=== PATIENT | female | born 1935 | race Caucasian/White ===

== ENCOUNTER 2019-12-30 00:45 | Inpatient (IN) | payer OTHER ==
[~2019-12-30] VITALS: Ht 165.1 cm; Wt 102.7 kg
[~2019-12-30 00:45] MED LIST: ATEN-60; ATOR10TA52 PO; HYDRPOW88 PO; LEV50T PO; LOS50T PO; METF-370 PO; NIFE1TAB31 PO; OMEP20CA74 OR
[2019-12-30 01:33] LABS: Basophils # (auto) 0.1 10 ^3/uL (0-0.2); Eosinophils # (auto) 0.1 10 ^3/uL (0-0.8); Monocytes # (auto) 0.6 10 ^3/uL (0-1.3)
[2019-12-30 01:34] LABS: Basophils % (auto) 0.4 % (0.0-2.0); Eosinophils % (auto) 0.8 % (0.0-7.0); Hematocrit 44.6 % (36.0-46.0); Hemoglobin 14.8 g/dL (12.2-16.2); Lymphocytes # (auto) 1.5 10 ^3/uL (0.4-5.4); Lymphocytes % (auto) 12.2 % (10.0-50.0); Mean Corpuscular Hemoglobin 26.6 pg (28.0-32.0); Mean Corpuscular Hgb Conc. 33.2 g/dL (32.0-36.0); Monocytes % (auto) 4.4 % (0.0-12.0); Neutrophils # (auto) 10.3 10 ^3/uL (1.6-8.6); Neutrophils % (auto) 82.2 % (37.0-80.0); Nucleated Red Blood Cells % 0.5 %; Platelet Count (auto) 383 10^3/uL (140-450); Red Blood Cells 5.57 10^6/uL (4.0-5.20); Red Cell Distribution Width 14.6 % (11.8-14.3); White Blood Cell 12.6 10^3/uL (4.4-10.8)
[2019-12-30 01:49] LABS: Alanine Aminotransferase 33 U/L (13-56); Albumin 3.5 g/dL (3.4-5.0); Anion Gap 12 (5-15); Aspartate Aminotransferase 21 U/L (15-37); BUN/Creatinine Ratio 16.1; Blood Urea Nitrogen 14 mg/dL (7-18); Calcium 8.3 mg/dL (8.5-10.1); Carbon Dioxide 25 mmol/L (21-32); Chloride 83 mmol/L (98-107); GFR African American 80 mL/min; GFR Non-African American 66 mL/min; Glucose 182 mg/dL (74-106); Potassium 3.2 mmol/L (3.5-5.1); Sodium 120 mmol/L (136-145)
[2019-12-30 01:53] LABS: Alkaline Phosphatase 55 U/L (45-117); Bilirubin, Total 0.8 mg/dL (0.2-1.0); Total Protein 7.6 g/dL (6.4-8.2)
[2019-12-30] MEDS ORDERED: SODIUM CHL 3% 500 ML IV ONE (04:00)
[2019-12-30] MEDS ORDERED: SODIUM CHLORIDE 0.9% 1,000 ML IV ONE (04:15)
[2019-12-30 04:38] LABS: Lactic Acid w/Reflex 3.6 mmol/L (0.4-2.0)
[2019-12-30 05:05] LABS: Urine Amorphous Crystal FEW /hpf (None Seen); Urine Bacteria MOD /hpf (None Seen); Urine Blood TRACE /uL (Negative); Urine Mucus FEW (None Seen); Urine Specific Gravity 1.016 (1.001-1.035); Urine WBC 29 /hpf (0 - 5)
[2019-12-30] MEDS ORDERED: PIPERACILLIN-TAZOB 3.375GM 100 ML IV ONE (06:45)
[2019-12-30] MEDS ORDERED: NITROGLYCERIN 0.4 MG SL TAB SL PRN (16:15)
[2019-12-30] MEDS ORDERED: PROMETHAZINE HCL 25 MG/ML 1ML IV ONE (16:15)
[2019-12-30] MEDS ORDERED: MORPHINE SULF INJ 2 MG/ML SYRINGE 1ML IV PRN (16:15)
[2019-12-30] MEDS: SODIUM CHLORIDE 0.9% 1,000 ML IV SCH (16:15)
[2019-12-30] MEDS ORDERED: HYDROcodone-ACET 5/325MG TAB PO PRN (16:15)
[2019-12-30] MEDS ORDERED: MEPERIDINE HCL (25 MG/ML) 1ML VIAL IM PRN (16:15)
[2019-12-30] MEDS ORDERED: ACETAMINOPHEN 500 MG TAB PO PRN (16:15)
[2019-12-30] MEDS ORDERED: ONDANSETRON HCL 4 MG/2 ML VIAL IV PRN (16:15)
[2019-12-30] MEDS ORDERED: DEXTROSE (50%) 50ML SYRG IV PRN (16:30)
[2019-12-30] MEDS ORDERED: POTASSIUM EFFERVESENT TAB 25 MEQ PO ONE (16:45)
--- NOTE | 2019-12-30 17:01 | NUR ---
RECEIVED REPORT FROM KATHY WALKER IN ER.
--- NOTE | 2019-12-30 17:10 | NUR ---
Telemetry admit from ER [facility] admitted to Telemetry unit after SBAR received. Patient oriented to Eliza Grider, primary RN, unit, room, bed, and unit policies regarding patient care and visiting hours. Patient now on continuous telemetry monitoring, tele box # 6 and telemetry reading on arrival to unit is sinus rhythm at 72bpm. Patient placed on bedside oxygen, weighed by bedscale and encouraged to call if they need something. All questions and concerns addressed, patient verbalized understanding. Note: pt is awake and alert, no signs of distress at this time, will continue to monitor.
[2019-12-30] MEDS: OXYCODONE W/ ACETAMINOPHEN 5/325MG TABLET PO PRN (17:54)
[2019-12-30] MEDS: InsuLIN REG 1unit/0.01ml Soln (100units/ml) SC SCH ×2 (18:04→22:00)
[2019-12-30] MEDS: ACCU-CHEK COMFORT CURVE STRIP VI SCH ×2 (18:04→21:50)
[2019-12-30 18:08] VITALS: BP 153/65
[2019-12-30] MEDS ORDERED: CLON0.3D4 PO (18:45)
[2019-12-30] MEDS ORDERED: LEVO150T10 PO (18:45)
--- NOTE | 2019-12-30 19:34 | NUR ---
Opening Shift Note Assumed care of patient, awake and alert x 4. No S/S of distress/SOB. Bed is in lowest position and locked. Call light within reach. Board updated. Tele box number matches monitor and leads are in correct placement. Instructed on POC and to call for assist PRN, will continue to monitor for changes Q1hr and PRN.
[2019-12-30] MEDS: METOPROLOL TARTRATE 50 MG TAB PO SCH (21:49)
[2019-12-30] MEDS: GABAPENTIN 300 MG CAP PO SCH (21:50)
[2019-12-30 22:00] VITALS: BP 144/65
[2019-12-31] MEDS: SODIUM CHLORIDE 0.9% 1,000 ML IV SCH ×2 (03:34→16:38)
[2019-12-31] MEDS: hydrALAZINE HCL 20 MG/ML VL IV PRN ×2 (04:34→19:09)
[2019-12-31] MEDS: OXYCODONE W/ ACETAMINOPHEN 5/325MG TABLET PO PRN ×2 (04:34→16:28)
[2019-12-31 05:44] VITALS: BP 179/87
[2019-12-31] MEDS: ACCU-CHEK COMFORT CURVE STRIP VI SCH ×4 (05:44→22:39)
[2019-12-31] MEDS: GABAPENTIN 300 MG CAP PO SCH ×3 (05:44→22:31)
[2019-12-31] MEDS: InsuLIN REG 1unit/0.01ml Soln (100units/ml) SC SCH ×4 (06:07→22:40)
[2019-12-31] MEDS: METOPROLOL TARTRATE 50 MG TAB PO SCH ×2 (06:22→22:30)
--- NOTE | 2019-12-31 06:22 | NUR ---
Metoprolol 50 mg PO given now instead of 1000 for first BID dose because patient has elevated BP of 167/86 despite giving PRN hydralazine. Metoprol was held at 2200 last night because of low HR (60). HR is currently 78.
[2019-12-31 06:37] LABS: Basophils # (auto) 0.1 10 ^3/uL (0-0.2); Eosinophils # (auto) 0.2 10 ^3/uL (0-0.8); Eosinophils % (auto) 1.8 % (0.0-7.0); Hematocrit 45.8 % (36.0-46.0); Lymphocytes # (auto) 2.1 10 ^3/uL (0.4-5.4); Lymphocytes % (auto) 24.5 % (10.0-50.0); Mean Corpuscular Hemoglobin 26.7 pg (28.0-32.0); Mean Corpuscular Hgb Conc. 32.8 g/dL (32.0-36.0); Mean Corpuscular Volume 81.5 fL (80.0-100.0); Monocytes # (auto) 0.8 10 ^3/uL (0-1.3); Monocytes % (auto) 9.5 % (0.0-12.0); Neutrophils # (auto) 5.4 10 ^3/uL (1.6-8.6); Neutrophils % (auto) 63.2 % (37.0-80.0); Nucleated Red Blood Cells % 0.3 %; Platelet Count (auto) 353 10^3/uL (140-450); Red Blood Cells 5.62 10^6/uL (4.0-5.20); Red Cell Distribution Width 14.6 % (11.8-14.3); White Blood Cell 8.6 10^3/uL (4.4-10.8)
[2019-12-31 06:57] LABS: BUN/Creatinine Ratio 14.3; Calcium 8.5 mg/dL (8.5-10.1); Potassium 3.5 mmol/L (3.5-5.1)
--- NOTE | 2019-12-31 07:30 | NUR ---
Opening Shift Note Assumed care of patient, awake and alert. No S/S of distress/SOB or pain. Instructed on POC and to call for assist PRN, will continue to monitor for changes Q1hr and PRN.
[2019-12-31 08:00] VITALS: BP 168/79
--- NOTE | 2019-12-31 09:00 | NUR ---
Patient's B/P 168/79. Hydralazine not due until 10:35. Will inform hospitalist.
[2019-12-31] MEDS: ONDANSETRON HCL 4 MG/2 ML VIAL IV PRN (09:07)
[2019-12-31] MEDS: cefTRIAXone 1GM/50ML D5W 50 ML IV SCH (09:07)
[2019-12-31] MEDS ORDERED: FAMOTIDINE 20 MG TAB PO SCH (10:00)
[2019-12-31 12:00] VITALS: BP 134/65
[2019-12-31] MEDS ORDERED: PANTOPRAZOLE 40 MG TAB PO ONE (14:15)
[2019-12-31] MEDS ORDERED: cloNIDine HCL 0.1 MG TAB PO PRN (14:15)
[2019-12-31] MEDS ORDERED: NIFEdipine ER 30 MG TAB PO ONE (14:15)
[2019-12-31] MEDS ORDERED: LOSARTAN POTASSIUM 50 MG TAB PO ONE (14:15)
[2019-12-31] MEDS ORDERED: NAPROXEN 500 MG TAB PO ONE (14:15)
[2019-12-31 17:00] VITALS: BP 162/80
--- NOTE | 2019-12-31 19:30 | NUR ---
Opening Shift Note Assumed care of patient, awake and alert x4. Patient denies pain or shortness of breath at this time. No sign/symptoms of distress noted or verbalized at this time. Instructed on plan of care and to call for assistance as needed, patient verbalized understanding. Bed is locked in lowest position, side rails x 2 are up, call light is within reach, and bed alarm is on.
--- NOTE | 2019-12-31 19:45 | NUR ---
Dr. Hernández at the bedside Dr. Hernández at the bedside discussing plan of care with patient.
--- NOTE | 2019-12-31 19:59 | NUR ---
Orders Received From Dr. Hernández Orders received from Dr. Hernández. Orders repeated and verified (see EMR for orders). Will carry out orders as received.
[2019-12-31] MEDS ORDERED: IOHEXOL 350 MG/ML 100ML IJ ONE (20:20)
[2019-12-31 20:39] VITALS: BP 160/49
[2019-12-31 22:18] VITALS: BP 127/73
[2019-12-31] MEDS: NAPROXEN 500 MG TAB PO SCH (22:31)
[2019-12-31] MEDS: LEVALBUTEROL HCL 1.25 MG/3 ML NEB NEB SCH (23:26)
[2019-12-31] MEDS: BUDESONIDE (INHALATION) 0.5 MG/2 ML NEB NEB SCH (23:26)
[2020-01-01] MEDS: OXYCODONE W/ ACETAMINOPHEN 5/325MG TABLET PO PRN ×3 (04:37→22:53)
--- NOTE | 2020-01-01 05:00 | NUR ---
Incentive Spirometer Incentive spirometer provided to patient. Patient educated on how to use the incentive spirometer, how often, and the purpose of it. Patient verbalized understanding and returned demonstration. Patient able to raise marker to 1,500 with no complications.
[2020-01-01 05:21] VITALS: BP 156/73
[2020-01-01] MEDS: BUDESONIDE (INHALATION) 0.5 MG/2 ML NEB NEB SCH ×2 (06:31→19:09)
[2020-01-01] MEDS: LEVALBUTEROL HCL 1.25 MG/3 ML NEB NEB SCH ×3 (06:32→19:08)
[2020-01-01] MEDS: GABAPENTIN 300 MG CAP PO SCH ×3 (06:41→21:42)
[2020-01-01] MEDS: SODIUM CHLORIDE 0.9% 1,000 ML IV SCH (06:41)
[2020-01-01] MEDS: ACCU-CHEK COMFORT CURVE STRIP VI SCH ×4 (06:41→22:34)
[2020-01-01 06:42] LABS: Basophils # (auto) 0.1 10 ^3/uL (0-0.2); Eosinophils # (auto) 0.2 10 ^3/uL (0-0.8); Monocytes # (auto) 1.2 10 ^3/uL (0-1.3)
[2020-01-01] MEDS: InsuLIN REG 1unit/0.01ml Soln (100units/ml) SC SCH ×5 (06:42→23:04)
[2020-01-01 06:44] LABS: Basophils % (auto) 0.8 % (0.0-2.0); Eosinophils % (auto) 1.5 % (0.0-7.0); Hematocrit 44.2 % (36.0-46.0); Hemoglobin 14.3 g/dL (12.2-16.2); Lymphocytes # (auto) 1.9 10 ^3/uL (0.4-5.4); Lymphocytes % (auto) 16.8 % (10.0-50.0); Mean Corpuscular Hemoglobin 26.5 pg (28.0-32.0); Mean Corpuscular Hgb Conc. 32.4 g/dL (32.0-36.0); Monocytes % (auto) 10.3 % (0.0-12.0); Neutrophils # (auto) 7.9 10 ^3/uL (1.6-8.6); Neutrophils % (auto) 70.6 % (37.0-80.0); Nucleated Red Blood Cells % 0.1 %; Platelet Count (auto) 338 10^3/uL (140-450); Red Cell Distribution Width 15.2 % (11.8-14.3); White Blood Cell 11.3 10^3/uL (4.4-10.8)
[2020-01-01 06:57] LABS: BUN/Creatinine Ratio 17.9; Calcium 8.6 mg/dL (8.5-10.1); Magnesium 2.4 mg/dL (1.6-2.6); Potassium 3.4 mmol/L (3.5-5.1)
--- NOTE | 2020-01-01 07:27 | NUR ---
Opening Shift Note Assumed care of patient, resting in bed with eyes closed. No S/S of distress/SOB or pain. Will continue to monitor for changes Q1hr and PRN. Bed is set in lowest locked position with side rails up x 2 for safety and call light is within reach. Noted Vincent in place hung below bladder draining clear, yellow fluid into bag.
[2020-01-01 09:00] VITALS: BP 139/86
[2020-01-01] MEDS: cefTRIAXone 1GM/50ML D5W 50 ML IV SCH (09:39)
[2020-01-01] MEDS: PANTOPRAZOLE 40 MG TAB PO SCH (09:40)
[2020-01-01] MEDS: METOPROLOL TARTRATE 50 MG TAB PO SCH ×2 (09:40→21:44)
[2020-01-01] MEDS: LOSARTAN POTASSIUM 50 MG TAB PO SCH (09:40)
[2020-01-01] MEDS: NIFEdipine ER 30 MG TAB PO SCH (09:41)
[2020-01-01] MEDS: NAPROXEN 500 MG TAB PO SCH ×2 (09:42→21:42)
--- NOTE | 2020-01-01 09:53 | NUR ---
Patient currently ambulating with FWW and PT at this time
[2020-01-01 10:15] VITALS: BP 102/77
--- NOTE | 2020-01-01 11:40 | NUR ---
RECD ORDER PER April MORALES FOR PRE/ POST BEDSIDE SPIROMETRY. TEST EXPLAINED TO PT AND PT VERBALIZED UNDERSTANDING. BEDSIDE SPIROMETRY CALIBRATED PRE TESTING, .63 XOPONEX ADMINISTERED WITH [employer] MID TEST. NO ADVERSE REACTIONS TO MEDICATION. SPIROMETRY RESULTS ACCEPTABLE WITH GOOD PT EFFORT. SPIROMETRY RESULTS IN PT CHART, RN AWARE.
[2020-01-01 13:00] VITALS: BP 138/74
--- NOTE | 2020-01-01 15:13 | NUR ---
MD Arroyo rounding at bedside
[2020-01-01] MEDS ORDERED: POTASSIUM CHL 20 Meq TABLET PO ONE (15:30)
[2020-01-01] MEDS ORDERED: CONJ ESTROGENS 0.625MG/GM VAG CRM 30GM PV ONE (15:30)
--- NOTE | 2020-01-01 15:49 | NUR ---
I faxed home health order to [facility].
[2020-01-01] MEDS: hydrALAZINE HCL 20 MG/ML VL IV PRN (16:27)
--- NOTE | 2020-01-01 16:44 | NUR ---
Patient will be followed by [facility] (phone number [phone])-they will see patient within 24-48 hours of discharge-I received this information from Yasmeen HERNÁNDEZ.
[2020-01-01 16:53] VITALS: BP 154/73
[2020-01-01] MEDS: ONDANSETRON HCL 4 MG/2 ML VIAL IV PRN (19:07)
--- NOTE | 2020-01-01 19:14 | NUR ---
Paged MD Arroyo In regards to patient c/o unable to have a bowel movement, patient states "I feel constipated". Awaiting call back at this time.
--- NOTE | 2020-01-01 19:15 | NUR ---
Care endorsed to NOC RN.
--- NOTE | 2020-01-01 19:29 | NUR ---
Spoke to MD Arroyo New orders received and read back for verification. Will proceed to carry out.
[2020-01-01] MEDS ORDERED: GLYCERIN ADULT RECTAL SUPP PR ONE (19:30)
--- NOTE | 2020-01-01 19:30 | NUR ---
Opening Shift Note Assumed care of patient, awake and alert x4. Patient denies pain or shortness of breath at this time. No sign/symptoms of distress noted or verbalized at this time. Incentive spirometer noted at the bedside, encouraged patient to use incentive spirometer every 2 hours while she is awake, patient verbalized understanding. Instructed on plan of care and to call for assistance as needed, patient verbalized understanding. Bed is locked in lowest position, side rails x 2 are up, call light is within reach, and bed alarm is on.
[2020-01-01] MEDS: DOCUSATE SOD 100 MG CAP PO SCH (21:42)
[2020-01-01 22:00] VITALS: BP 159/83
[2020-01-02] MEDS: LEVALBUTEROL HCL 1.25 MG/3 ML NEB NEB SCH ×3 (00:28→11:58)
[2020-01-02] MEDS: OXYCODONE W/ ACETAMINOPHEN 5/325MG TABLET PO PRN (04:35)
[2020-01-02 05:00] VITALS: BP 146/82
[2020-01-02] MEDS: BUDESONIDE (INHALATION) 0.5 MG/2 ML NEB NEB SCH (06:20)
[2020-01-02 06:57] LABS: BUN/Creatinine Ratio 16.4; Potassium 3.6 mmol/L (3.5-5.1)
[2020-01-02] MEDS: GABAPENTIN 300 MG CAP PO SCH ×2 (06:59→15:08)
[2020-01-02] MEDS: ACCU-CHEK COMFORT CURVE STRIP VI SCH ×2 (06:59→11:24)
[2020-01-02] MEDS: InsuLIN REG 1unit/0.01ml Soln (100units/ml) SC SCH ×2 (07:00→11:49)
[2020-01-02 08:42] VITALS: BP 116/63
[2020-01-02] MEDS: NAPROXEN 500 MG TAB PO SCH (09:32)
[2020-01-02] MEDS: DOCUSATE SOD 100 MG CAP PO SCH (09:32)
[2020-01-02] MEDS: cefTRIAXone 1GM/50ML D5W 50 ML IV SCH (09:32)
[2020-01-02] MEDS: PANTOPRAZOLE 40 MG TAB PO SCH (09:32)
[2020-01-02] MEDS: METOPROLOL TARTRATE 50 MG TAB PO SCH (09:33)
[2020-01-02] MEDS: NIFEdipine ER 30 MG TAB PO SCH (09:33)
--- NOTE | 2020-01-02 09:40 | NUR ---
MD Arroyo at bedside for rounds Discussed plans of discharge with patient, patient verbalized understanding and states she feels better and ready to go home.
[2020-01-02] MEDS ORDERED: FLEET ENEMA(ADULT) 135 ML PR ONE (09:45)
[2020-01-02] MEDS ORDERED: LACTULOSE 20Gm/30ML SOLN PO ONE (09:45)
[2020-01-02] MEDS: LOSARTAN POTASSIUM 50 MG TAB PO SCH (10:45)
[2020-01-02 10:48] VITALS: BP_SYST 107; BP_SYST 116; BP_DIAS 57; BP_DIAS 63
[2020-01-02 13:00] VITALS: BP 107/57
--- NOTE | 2020-01-02 14:00 | NUR ---
Patient bowel movement Patient had a small, brown bowel movement in the bedside commode. No complaints of pain or discomfort. Will continue to monitor
--- NOTE | 2020-01-02 16:21 | NUR ---
Discharge instructions given as ordered. Encourage to follow up with PMD as instructed. All questions and concerns addressed. Patient verbalized understanding. IV removed with catheter intact, pressure dressing applied, douglas catheter removed. Telemetry unit returned to ICU. Patient taken to vehicle via wheelchair with all personal belongings, accompanied by staff. No distress noted at time of departure.
[2020-01-03] MEDS ORDERED: CONJ ESTROGENS 0.625MG/GM VAG CRM 30GM PV SCH (10:00)
== END 2020-01-02 16:21 | disposition home or self-care (01) | DRG 690 ==
LOC: EDBD 00:45 → ER 00:45 → TELE 00:46 → TELE-EAST 17:24
PROVIDERS: ADMIT Nurse Practitioner Acute Care; ATTEND Internal Medicine Geriatric Medicine
DX: N39.0 Urinary tract infection, site not specified (principal); E87.1 Hypo-osmolality and hyponatremia; E66.9 Obesity, unspecified; E87.6 Hypokalemia; E86.0 Dehydration; I10 Essential (primary) hypertension; E11.9 Type 2 diabetes mellitus without complications; M16.0 Bilateral primary osteoarthritis of hip; G89.29 Other chronic pain; K21.9 Gastro-esophageal reflux disease without esophagitis; M54.40 Lumbago with sciatica, unspecified side; R62.7 Adult failure to thrive; Z90.710 Acquired absence of both cervix and uterus; Z79.84 Long term (current) use of oral hypoglycemic drugs; Z83.3 Family history of diabetes mellitus; Z79.899 Other long term (current) drug therapy; Z68.36 Body mass index [BMI] 36.0-36.9, adult
CPT/HCPCS: 36415; 71045; 71275; 72192; 73502; 80048; 80053; 81001; 82962; 83605; 83735; 83880; 84300; 84484; 85025; 86635; 87086; 93005; 93970; 94010; 94640; 97163; G0378; J0696; J1815; J2405; J2543

== ENCOUNTER 2021-01-02 18:09 | Inpatient (IN) | payer OTHER ==
[~2021-01-02] VITALS: Ht 165.1 cm; Wt 85.8 kg
[~2021-01-02 18:09] MED LIST changes: +CLON0.3D4 PO; -LEV50T PO; +LEVO150T10 PO
[2021-01-02 19:02] LABS: Basophils # (auto) 0.1 10 ^3/uL (0-0.2); Basophils % (auto) 0.8 % (0.0-2.0); Eosinophils # (auto) 0.2 10 ^3/uL (0-0.8); Eosinophils % (auto) 2.2 % (0.0-7.0); Hematocrit 43.8 % (36.0-46.0); Hemoglobin 14.8 g/dL (12.2-16.2); Lymphocytes # (auto) 2.2 10 ^3/uL (0.4-5.4); Lymphocytes % (auto) 20.9 % (10.0-50.0); Mean Corpuscular Hemoglobin 27.3 pg (28.0-32.0); Mean Corpuscular Hgb Conc. 33.7 g/dL (32.0-36.0); Monocytes # (auto) 0.8 10 ^3/uL (0-1.3); Monocytes % (auto) 7.6 % (0.0-12.0); Neutrophils # (auto) 7.1 10 ^3/uL (1.6-8.6); Neutrophils % (auto) 68.5 % (37.0-80.0); Nucleated Red Blood Cells % 0.1 %; Platelet Count (auto) 302 10^3/uL (140-450); Red Blood Cells 5.42 10^6/uL (4.0-5.20); Red Cell Distribution Width 14.3 % (11.8-14.3); White Blood Cell 10.4 10^3/uL (4.4-10.8)
[2021-01-02 19:23] LABS: Albumin 3.8 g/dL (3.4-5.0); Anion Gap 9 (5-15); Blood Urea Nitrogen 21 mg/dL (7-18); Calcium 9.4 mg/dL (8.5-10.1); Carbon Dioxide 27 mmol/L (21-32); Chloride 102 mmol/L (98-107); Glucose 141 mg/dL (74-106); Potassium 3.2 mmol/L (3.5-5.1); Sodium 138 mmol/L (136-145)
[2021-01-02 19:26] LABS: Alanine Aminotransferase 23 U/L (13-56); Aspartate Aminotransferase 20 U/L (15-37); BUN/Creatinine Ratio 22.6; Bilirubin, Total 0.5 mg/dL (0.2-1.0); GFR African American 74 mL/min; GFR Non-African American 61 mL/min; Total Protein 7.9 g/dL (6.4-8.2)
[2021-01-02 19:29] LABS: Alkaline Phosphatase 61 U/L (45-117)
[2021-01-02] MEDS ORDERED: POTASSIUM EFFERVESENT TAB 25 MEQ PO ONE (20:15)
[2021-01-02] MEDS ORDERED: ACETAMINOPHEN 325 MG TAB PO PRN (21:00)
[2021-01-02] MEDS ORDERED: NITROGLYCERIN 0.4 MG SL TAB SL PRN (21:00)
[2021-01-02] MEDS ORDERED: ONDANSETRON HCL 4 MG/2 ML VIAL IV PRN (21:00)
[2021-01-02] MEDS ORDERED: MORPHINE SULF INJ 2 MG/ML SYRINGE 1ML IV PRN (21:00)
[2021-01-02] MEDS: ATORVASTATIN 20 MG TAB PO SCH (21:30)
[2021-01-02] MEDS: cloNIDine HCL 0.1 MG TAB PO PRN (21:33)
[2021-01-03] MEDS: TEMAZEPAM 15 MG CAP PO PRN ×2 (00:39→21:46)
[2021-01-03] MEDS: cloNIDine HCL 0.1 MG TAB PO PRN (04:17)
[2021-01-03] MEDS: LEVOTHYROXINE SODIUM 25 MCG TAB PO SCH (06:36)
[2021-01-03 07:49] LABS: Eosinophils # (auto) 0.2 10 ^3/uL (0-0.8); Lymphocytes # (auto) 1.7 10 ^3/uL (0.4-5.4)
[2021-01-03 07:50] LABS: Basophils # (auto) 0.1 10 ^3/uL (0-0.2); Basophils % (auto) 0.9 % (0.0-2.0); Eosinophils % (auto) 2.2 % (0.0-7.0); Hematocrit 42.5 % (36.0-46.0); Hemoglobin 14.3 g/dL (12.2-16.2); Lymphocytes % (auto) 19.5 % (10.0-50.0); Mean Corpuscular Hemoglobin 27.2 pg (28.0-32.0); Mean Corpuscular Hgb Conc. 33.7 g/dL (32.0-36.0); Mean Corpuscular Volume 80.7 fL (80.0-100.0); Monocytes # (auto) 0.8 10 ^3/uL (0-1.3); Monocytes % (auto) 8.5 % (0.0-12.0); Neutrophils # (auto) 6.1 10 ^3/uL (1.6-8.6); Neutrophils % (auto) 68.9 % (37.0-80.0); Nucleated Red Blood Cells % 0.2 %; Platelet Count (auto) 321 10^3/uL (140-450); Red Blood Cells 5.27 10^6/uL (4.0-5.20); Red Cell Distribution Width 14.3 % (11.8-14.3); White Blood Cell 8.9 10^3/uL (4.4-10.8)
[2021-01-03 08:00] LABS: BUN/Creatinine Ratio 23.3; Calcium 9.3 mg/dL (8.5-10.1); Potassium 3.3 mmol/L (3.5-5.1)
[2021-01-03 09:28] VITALS: BP 150/92
[2021-01-03] MEDS: HCTZ 25 MG TAB PO SCH (11:19)
[2021-01-03] MEDS: ASPirin 81 mg TAB PO SCH (11:19)
[2021-01-03] MEDS: LOSARTAN POTASSIUM 25 MG TAB PO SCH (11:20)
[2021-01-03] MEDS: ATENOLOL 50 MG TAB PO SCH (11:21)
[2021-01-03] MEDS: FAMOTIDINE 20 MG TAB PO SCH (11:22)
[2021-01-03] MEDS: NIFEdipine ER 30 MG TAB PO SCH (11:22)
[2021-01-03 11:30] VITALS: BP 131/79
[2021-01-03 13:04] VITALS: BP 135/75
[2021-01-03 16:52] VITALS: BP 143/85
[2021-01-03] MEDS: ATORVASTATIN 20 MG TAB PO SCH (21:07)
[2021-01-03 22:00] VITALS: BP 136/81
[2021-01-04 05:00] VITALS: BP 159/88
[2021-01-04] MEDS: LEVOTHYROXINE SODIUM 25 MCG TAB PO SCH (06:16)
[2021-01-04 08:20] VITALS: BP 162/87
[2021-01-04 09:00] VITALS: BP 162/87
[2021-01-04] MEDS: HCTZ 25 MG TAB PO SCH (09:03)
[2021-01-04] MEDS: ASPirin 81 mg TAB PO SCH (09:03)
[2021-01-04] MEDS: LOSARTAN POTASSIUM 25 MG TAB PO SCH (09:04)
[2021-01-04] MEDS: NIFEdipine ER 30 MG TAB PO SCH (09:05)
[2021-01-04] MEDS: ATENOLOL 50 MG TAB PO SCH (09:05)
[2021-01-04] MEDS: FAMOTIDINE 20 MG TAB PO SCH (09:05)
[2021-01-04] MEDS: cloNIDine HCL 0.1 MG TAB PO PRN (12:41)
[2021-01-04 13:00] VITALS: BP 160/89
[2021-01-04] MEDS ORDERED: HYDROcodone-ACET 5/325MG TAB PO ONE (13:45)
[2021-01-04 14:28] VITALS: BP 148/73
[2021-01-05] MEDS ORDERED: LOSARTAN POTASSIUM 50 MG TAB PO SCH (10:00)
== END 2021-01-04 19:20 | disposition home or self-care (01) | DRG 313 ==
LOC: EDBD 18:09 → ER 18:11 → TELE 20:55 → TELE-WESTW 01-03 08:55
PROVIDERS: ADMIT Nurse Practitioner; ATTEND Internal Medicine Geriatric Medicine
DX: R07.9 Chest pain, unspecified (principal); R00.0 Tachycardia, unspecified; E78.5 Hyperlipidemia, unspecified; E03.9 Hypothyroidism, unspecified; E11.9 Type 2 diabetes mellitus without complications; Z20.822 Contact with and (suspected) exposure to COVID-19; E66.9 Obesity, unspecified; I16.0 Hypertensive urgency; I10 Essential (primary) hypertension; K21.9 Gastro-esophageal reflux disease without esophagitis; Z90.710 Acquired absence of both cervix and uterus; Z88.5 Allergy status to narcotic agent; Z68.33 Body mass index [BMI] 33.0-33.9, adult
CPT/HCPCS: 36415; 71045; 80048; 80053; 83735; 83880; 84484; 85025; 85379; 85610; 87426; 93005; 93306; G0378; J2405

== ENCOUNTER 2023-02-03 17:15 | Inpatient (IN) | payer OTHER ==
[~2023-02-03] VITALS: Ht 165.1 cm; Wt 87.3 kg
[2023-02-03] MEDS ORDERED: AMIODARONE HCL 150 MG in D5W 5% 100 ML IV ONE (18:15)
[2023-02-03] MEDS ORDERED: AMIODARONE 450mg/250ml AE 250 ML IV SCH (18:30)
[2023-02-03 18:32] LABS: Mean Corpuscular Hgb Conc. 32.4 g/dL (32.0-36.0); Monocytes # (auto) 0.6 10 ^3/uL (0-1.3); Nucleated Red Blood Cells % 0.2 %
[2023-02-03 18:33] LABS: Basophils # (auto) 0.1 10 ^3/uL (0-0.2); Basophils % (auto) 0.9 % (0.0-2.0); Eosinophils # (auto) 0.4 10 ^3/uL (0-0.8); Eosinophils % (auto) 4.3 % (0.0-7.0); Hematocrit 44.2 % (36.0-46.0); Hemoglobin 14.3 g/dL (12.2-16.2); Lymphocytes # (auto) 2.1 10 ^3/uL (0.4-5.4); Lymphocytes % (auto) 21.4 % (10.0-50.0); Mean Corpuscular Hemoglobin 25.9 pg (28.0-32.0); Mean Corpuscular Volume 79.9 fL (80.0-100.0); Monocytes % (auto) 6.4 % (0.0-12.0); Neutrophils # (auto) 6.5 10 ^3/uL (1.6-8.6); Red Blood Cells 5.53 10^6/uL (4.0-5.20); Red Cell Distribution Width 15.8 % (11.8-14.3); White Blood Cell 9.7 10^3/uL (4.4-10.8)
[2023-02-03 18:55] LABS: Potassium 3.8 mmol/L (3.5-5.1)
[2023-02-03 18:58] LABS: BUN/Creatinine Ratio 15.3 (10.0-20.0); Bilirubin, Total 0.6 mg/dL (0.2-1.0); Total Protein 7.4 g/dL (6.4-8.2)
[2023-02-03] MEDS ORDERED: ACETAMINOPHEN 325 MG TAB PO PRN (20:45)
[2023-02-03] MEDS ORDERED: NITROGLYCERIN 0.4 MG SL TAB SL PRN (20:45)
[2023-02-03] MEDS ORDERED: LEVOTHYROXINE SODIUM 50 MCG TAB PO ONE (20:45)
[2023-02-03] MEDS ORDERED: ONDANSETRON HCL 4 MG/2 ML VIAL IV PRN (20:45)
[2023-02-03] MEDS ORDERED: MORPHINE SULFATE INJ 2 MG/ml SYRG IV PRN (20:45)
[2023-02-03] MEDS ORDERED: DEXTROSE (50%) 50ML SYRG IV PRN (20:45)
[2023-02-03 21:35] LABS: Urine Bacteria FEW /hpf (None Seen); Urine Blood Negative /uL (Negative); Urine WBC 32 /hpf (0 - 5)
[2023-02-03] MEDS: InsuLIN REG 1unit/0.01ml Soln (100units/ml) SC SCH (23:44)
[2023-02-03] MEDS: ACCU-CHEK COMFORT CURVE STRIP VI SCH (23:45)
[2023-02-03] MEDS: cloNIDine HCL 0.1 MG TAB PO SCH (23:51)
[2023-02-04] MEDS ORDERED: AMIODARONE 450mg/250ml AE 250 ML IV SCH (00:30)
[2023-02-04] MEDS ORDERED: hydrALAZINE HCL 20 MG/ML VL IV ONE (03:45)
[2023-02-04 05:30] LABS: Basophils # (auto) 0.1 10 ^3/uL (0-0.2); Eosinophils # (auto) 0.4 10 ^3/uL (0-0.8)
[2023-02-04 05:32] LABS: Basophils % (auto) 1.3 % (0.0-2.0); Eosinophils % (auto) 5.6 % (0.0-7.0); Hematocrit 39.9 % (36.0-46.0); Lymphocytes # (auto) 2.1 10 ^3/uL (0.4-5.4); Lymphocytes % (auto) 28.4 % (10.0-50.0); Mean Corpuscular Hemoglobin 26.1 pg (28.0-32.0); Mean Corpuscular Hgb Conc. 32.6 g/dL (32.0-36.0); Monocytes # (auto) 0.7 10 ^3/uL (0-1.3); Monocytes % (auto) 9.5 % (0.0-12.0); Neutrophils # (auto) 4.1 10 ^3/uL (1.6-8.6); Neutrophils % (auto) 55.2 % (37.0-80.0); Nucleated Red Blood Cells % 0.2 %; Red Blood Cells 4.99 10^6/uL (4.0-5.20); Red Cell Distribution Width 15.5 % (11.8-14.3); White Blood Cell 7.4 10^3/uL (4.4-10.8)
[2023-02-04 05:43] LABS: Albumin 3.4 g/dL (3.4-5.0); Calcium 9.1 mg/dL (8.5-10.1); Potassium 3.4 mmol/L (3.5-5.1)
[2023-02-04 05:47] LABS: BUN/Creatinine Ratio 19.8 (10.0-20.0); Bilirubin, Total 0.7 mg/dL (0.2-1.0); Total Protein 6.9 g/dL (6.4-8.2)
[2023-02-04] MEDS ORDERED: hydrALAZINE HCL 20 MG/ML VL IV PRN (06:30)
[2023-02-04] MEDS ORDERED: HCTZ 25 MG TAB PO SCH ×2 (06:30→10:00)
[2023-02-04] MEDS ORDERED: POTASSIUM CHL 20 Meq TABLET PO ONE (06:45)
[2023-02-04] MEDS ORDERED: LEVOTHYROXINE SODIUM 25 MCG TAB PO SCH (07:00)
[2023-02-04 07:09] LABS: Magnesium 2.2 mg/dL (1.6-2.6)
[2023-02-04] MEDS: ACCU-CHEK COMFORT CURVE STRIP VI SCH ×4 (07:20→21:46)
[2023-02-04] MEDS: InsuLIN REG 1unit/0.01ml Soln (100units/ml) SC SCH ×4 (07:22→21:49)
[2023-02-04] MEDS: ENOXAPARIN SOD 80 MG/0.8ML SYRINGE SC SCH ×2 (09:53→21:45)
[2023-02-04] MEDS: PANTOPRAZOLE 40 MG TAB PO SCH (09:53)
[2023-02-04] MEDS: cloNIDine HCL 0.1 MG TAB PO SCH ×2 (09:54→21:44)
[2023-02-04] MEDS ORDERED: ENOXAPARIN SOD 40 MG/0.4 ML SYRINGE SC SCH (10:00)
[2023-02-04] MEDS ORDERED: ATENOLOL 50 MG TAB PO SCH (10:00)
[2023-02-04 10:56] VITALS: BP 155/86
[2023-02-04] MEDS ORDERED: cefTRIAXone 1GM/50ML D5W 50 ML IV ONE (13:15)
[2023-02-04] MEDS ORDERED: LOSARTAN POTASSIUM 50 MG TAB PO ONE (13:15)
[2023-02-04] MEDS ORDERED: ASPirin 81 mg TAB PO ONE (13:15)
[2023-02-04] MEDS ORDERED: IOHEXOL 350 MG/ML 100ML IJ ONE (17:27)
[2023-02-04] MEDS: METOPROLOL TARTRATE 25 MG TAB PO SCH (21:45)
[2023-02-04] MEDS: HCTZ 25 MG TAB PO SCH (21:50)
[2023-02-04] MEDS ORDERED: ATORVASTATIN 20 MG TAB PO SCH (22:00)
[2023-02-05 05:00] VITALS: BP 157/70
[2023-02-05] MEDS: ACCU-CHEK COMFORT CURVE STRIP VI SCH ×2 (06:06→11:44)
[2023-02-05] MEDS: InsuLIN REG 1unit/0.01ml Soln (100units/ml) SC SCH ×2 (06:14→11:30)
[2023-02-05 06:27] LABS: Basophils # (auto) 0.1 10 ^3/uL (0-0.2); Eosinophils # (auto) 0.5 10 ^3/uL (0-0.8); Hemoglobin 13.5 g/dL (12.2-16.2); Neutrophils # (auto) 4.9 10 ^3/uL (1.6-8.6); Nucleated Red Blood Cells % 0.1 %; White Blood Cell 8.2 10^3/uL (4.4-10.8)
[2023-02-05 06:30] LABS: Basophils % (auto) 1.2 % (0.0-2.0); Eosinophils % (auto) 5.7 % (0.0-7.0); Hematocrit 40.9 % (36.0-46.0); Lymphocytes % (auto) 24.4 % (10.0-50.0); Mean Corpuscular Hemoglobin 26.3 pg (28.0-32.0); Mean Corpuscular Hgb Conc. 32.9 g/dL (32.0-36.0); Monocytes # (auto) 0.7 10 ^3/uL (0-1.3); Monocytes % (auto) 8.5 % (0.0-12.0); Neutrophils % (auto) 60.2 % (37.0-80.0); Red Blood Cells 5.11 10^6/uL (4.0-5.20); Red Cell Distribution Width 15.6 % (11.8-14.3)
[2023-02-05 06:42] LABS: Albumin 3.4 g/dL (3.4-5.0); Calcium 9.4 mg/dL (8.5-10.1); Potassium 3.4 mmol/L (3.5-5.1)
[2023-02-05 06:47] LABS: Bilirubin, Total 0.8 mg/dL (0.2-1.0)
[2023-02-05] MEDS ORDERED: LEVOTHYROXINE SODIUM 88 MCG TAB PO SCH (07:00)
[2023-02-05] MEDS: cloNIDine HCL 0.1 MG TAB PO SCH (08:36)
[2023-02-05] MEDS: METOPROLOL TARTRATE 25 MG TAB PO SCH (08:38)
[2023-02-05] MEDS: PANTOPRAZOLE 40 MG TAB PO SCH (08:38)
[2023-02-05] MEDS: HCTZ 25 MG TAB PO SCH (08:38)
[2023-02-05] MEDS: ENOXAPARIN SOD 80 MG/0.8ML SYRINGE SC SCH (08:38)
[2023-02-05] MEDS ORDERED: cefTRIAXone 1GM/50ML D5W 50 ML IV SCH (09:00)
[2023-02-05] MEDS ORDERED: POTASSIUM CHL 20 Meq TABLET PO ONE (09:15)
[2023-02-05 09:30] VITALS: BP 161/92
[2023-02-05] MEDS ORDERED: LOSARTAN POTASSIUM 50 MG TAB PO SCH (10:00)
[2023-02-05] MEDS ORDERED: ASPirin 81 mg TAB PO SCH (10:00)
[2023-02-05 13:09] VITALS: BP 123/66
[2023-02-05] MEDS ORDERED: ATOR20TA50 PO (13:23)
[2023-02-05] MEDS ORDERED: MET50T PO (13:23)
[2023-02-05] MEDS ORDERED: LOSA100T58 PO (13:23)
[2023-02-05] MEDS ORDERED: ASPI-325 PO (13:23)
[2023-02-05] MEDS ORDERED: LEVO-177 PO (13:23)
[2023-02-05] MEDS ORDERED: APIX5TAB PO (13:23)
[2023-02-05 14:35] VITALS: BP 123/66
[2023-02-05 16:21] VITALS: BP 155/76
== END 2023-02-05 16:35 | disposition home or self-care (01) | DRG 281 ==
LOC: ER 17:15 → EDBD 17:15 → TELE 20:46 → TELE-CENTR 02-04 10:46
PROVIDERS: ADMIT Internal Medicine; ATTEND Internal Medicine
DX: I21.4 Non-ST elevation (NSTEMI) myocardial infarction (principal); D68.69 Other thrombophilia; N17.9 Acute kidney failure, unspecified; E11.9 Type 2 diabetes mellitus without complications; E03.9 Hypothyroidism, unspecified; E78.5 Hyperlipidemia, unspecified; I48.0 Paroxysmal atrial fibrillation; K21.9 Gastro-esophageal reflux disease without esophagitis; I11.9 Hypertensive heart disease without heart failure; Z88.5 Allergy status to narcotic agent; Z90.710 Acquired absence of both cervix and uterus
CPT/HCPCS: 36415; 71045; 74175; 80053; 80061; 81001; 82306; 82962; 83036; 83735; 84439; 84443; 84484; 85025; 93005; 93306; G0378; J0696; J1815; J7060

== ENCOUNTER 2023-05-23 16:17 | Inpatient (IN) | payer OTHER ==
[~2023-05-23] VITALS: Ht 165.1 cm; Wt 90.1 kg
[~2023-05-23 16:17] MED LIST changes: +ALBU108A5 IN; +APIX5TAB PO; +ASPI-325 PO; -ATEN-60; -ATOR10TA52 PO; +ATOR20TA50 PO; +HYDR-4296 PO; -HYDRPOW88 PO; +LEVO-177 PO; -LEVO150T10 PO; +METO-289 PO; -NIFE1TAB31 PO; -OMEP20CA74 OR; +PANT40TA2 PO
[2023-05-24] VITALS (8 sets, daily range): BP systolic 132–176; BP diastolic 79–94; PULSE 74–86; RESP 16–20; TEMP 97.5–98.6; O2SAT 91–95
[2023-05-24] MEDS ORDERED: NITROGLYCERIN 0.4 MG SL TAB SL PRN ×2 (01:30→01:45)
[2023-05-24] MEDS ORDERED: ACETAMINOPHEN 500 MG TAB PO PRN (01:45)
[2023-05-24] MEDS ORDERED: ALBUMIN 5% 250 ML IV PRN (01:45)
[2023-05-24] MEDS ORDERED: DEXTROSE (50%) 50ML SYRG IV PRN ×2 (01:45→04:00)
[2023-05-24] MEDS ORDERED: LORazepam 2MG/ML-1ML VIAL IV PRN (01:45)
[2023-05-24] MEDS ORDERED: NIFE1TAB31 PO (02:11)
[2023-05-24] MEDS: LACTULOSE 20Gm/30ML SOLN PO SCH ×3 (05:49→21:40)
[2023-05-24] MEDS: LEVOTHYROXINE SODIUM 88 MCG TAB PO SCH (05:49)
[2023-05-24] MEDS: ACCU-CHEK COMFORT CURVE STRIP VI SCH ×4 (05:58→21:40)
[2023-05-24] MEDS: InsuLIN REG 1unit/0.01ml Soln (100units/ml) SC SCH ×4 (05:59→21:41)
[2023-05-24] MEDS: ONDANSETRON HCL 4 MG/2 ML VIAL IV PRN ×2 (06:49→20:10)
[2023-05-24] MEDS ORDERED: ACCU-CHEK COMFORT CURVE STRIP VI SCH (07:00)
[2023-05-24] MEDS ORDERED: amLODIPine BESYLATE 5 MG TAB PO SCH (10:00)
[2023-05-24] MEDS: DOCUSATE ORAL LIQUID 100 MG/10 ML UD PO SCH ×3 (10:00→21:40)
[2023-05-24] MEDS ORDERED: METOPROLOL TARTRATE 25 MG TAB PO SCH (10:00)
[2023-05-24] MEDS: ASPirin-EC 81 mg tab PO SCH (10:09)
[2023-05-24] MEDS: FAMOTIDINE (10MG/ML) 2ML VL IV SCH ×2 (10:09→21:33)
[2023-05-24] MEDS: COLCHICINE 0.6 MG CAP PO SCH ×2 (10:10→21:31)
[2023-05-24] MEDS: APIXABAN 5 MG TAB PO SCH ×2 (10:10→21:33)
[2023-05-24] MEDS: AMIODARONE HCL 200 MG TAB PO SCH ×2 (10:10→21:31)
[2023-05-24] MEDS: FUROSEMIDE 40 MG TAB PO SCH (10:11)
[2023-05-24] MEDS: traMADol HCL 50 MG TAB PO PRN (11:50)
[2023-05-24] MEDS: cloNIDine HCL 0.1 MG TAB PO PRN (15:20)
[2023-05-24] MEDS ORDERED: LOSARTAN POTASSIUM 25 MG TAB PO ONE (18:00)
[2023-05-24] MEDS: METOPROLOL TARTRATE 25 MG TAB PO SCH (21:32)
[2023-05-25] VITALS (7 sets, daily range): BP systolic 126–163; BP diastolic 67–95; PULSE 70–78; RESP 18–22; TEMP 36.4; O2SAT 91–100
[2023-05-25] MEDS: cloNIDine HCL 0.1 MG TAB PO PRN (01:11)
[2023-05-25] MEDS: traMADol HCL 50 MG TAB PO PRN ×2 (03:03→10:46)
[2023-05-25] MEDS: LACTULOSE 20Gm/30ML SOLN PO SCH ×3 (05:31→22:00)
[2023-05-25 06:01] LABS: Calcium 8.4 mg/dL (8.7-10.4); Chloride 99 mmol/L (98-107); Potassium 3.4 mmol/L (3.5-5.1); Sodium 132 mmol/L (136-145)
[2023-05-25 06:02] LABS: Anion Gap 5 (5-15); Carbon Dioxide 28 mmol/L (20-30)
[2023-05-25 06:07] LABS: BUN/Creatinine Ratio 11.4 (10.0-20.0); Blood Urea Nitrogen 10 mg/dL (9-23); Glucose 96 mg/dL (74-106)
[2023-05-25] MEDS: LEVOTHYROXINE SODIUM 88 MCG TAB PO SCH (06:16)
[2023-05-25] MEDS: ACCU-CHEK COMFORT CURVE STRIP VI SCH ×4 (06:27→22:01)
[2023-05-25] MEDS: InsuLIN REG 1unit/0.01ml Soln (100units/ml) SC SCH ×4 (06:29→22:00)
[2023-05-25 06:32] LABS: Basophils # (auto) 0 10 ^3/uL (0-0.2); Basophils % (auto) 0.5 % (0.0-2.0); Eosinophils # (auto) 0.6 10 ^3/uL (0-0.8); Eosinophils % (auto) 5.5 % (0.0-7.0); Hematocrit 32.3 % (36.0-46.0); Hemoglobin 10.6 g/dL (12.2-16.2); Lymphocytes % (auto) 9.3 % (10.0-50.0); Mean Corpuscular Hemoglobin 27.4 pg (28.0-32.0); Mean Corpuscular Hgb Conc. 32.9 g/dL (32.0-36.0); Mean Corpuscular Volume 83.3 fL (80.0-100.0); Monocytes # (auto) 0.8 10 ^3/uL (0-1.3); Monocytes % (auto) 7.5 % (0.0-12.0); Neutrophils # (auto) 8.2 10 ^3/uL (1.6-8.6); Neutrophils % (auto) 77.2 % (37.0-80.0); Red Blood Cells 3.87 10^6/uL (4.0-5.20); Red Cell Distribution Width 16.2 % (11.8-14.3); White Blood Cell 10.6 10^3/uL (4.4-10.8)
[2023-05-25] MEDS: DOCUSATE ORAL LIQUID 100 MG/10 ML UD PO SCH ×2 (10:00→22:00)
[2023-05-25] MEDS: COLCHICINE 0.6 MG CAP PO SCH ×2 (10:37→22:18)
[2023-05-25] MEDS: ASPirin-EC 81 mg tab PO SCH (10:38)
[2023-05-25] MEDS: LOSARTAN POTASSIUM 25 MG TAB PO SCH (10:38)
[2023-05-25] MEDS: METOPROLOL TARTRATE 25 MG TAB PO SCH ×2 (10:39→22:19)
[2023-05-25] MEDS: APIXABAN 5 MG TAB PO SCH ×2 (10:40→22:18)
[2023-05-25] MEDS: AMIODARONE HCL 200 MG TAB PO SCH ×2 (10:40→22:18)
[2023-05-25] MEDS: FUROSEMIDE 40 MG TAB PO SCH (10:41)
[2023-05-25] MEDS: amLODIPine BESYLATE 5 MG TAB PO SCH (10:43)
[2023-05-25] MEDS: FAMOTIDINE (10MG/ML) 2ML VL IV SCH ×2 (10:47→22:18)
[2023-05-25] MEDS ORDERED: POTASSIUM CHL 20 Meq TABLET PO ONE (11:45)
[2023-05-25] MEDS: ONDANSETRON HCL 4 MG/2 ML VIAL IV PRN ×2 (13:51→22:48)
[2023-05-26] VITALS (7 sets, daily range): BP systolic 118–163; BP diastolic 79–90; PULSE 68–90; RESP 16–22; TEMP 97.5–98.6; O2SAT 92–100
[2023-05-26] MEDS: LACTULOSE 20Gm/30ML SOLN PO SCH ×3 (04:44→22:00)
[2023-05-26] MEDS: InsuLIN REG 1unit/0.01ml Soln (100units/ml) SC SCH ×4 (05:53→22:00)
[2023-05-26] MEDS: ACCU-CHEK COMFORT CURVE STRIP VI SCH ×4 (06:26→22:11)
[2023-05-26] MEDS: LEVOTHYROXINE SODIUM 88 MCG TAB PO SCH (06:29)
[2023-05-26] MEDS: cloNIDine HCL 0.1 MG TAB PO PRN (06:30)
[2023-05-26] MEDS: traMADol HCL 50 MG TAB PO PRN (06:33)
[2023-05-26] MEDS: FUROSEMIDE 40 MG TAB PO SCH (09:03)
[2023-05-26] MEDS: FAMOTIDINE (10MG/ML) 2ML VL IV SCH ×2 (09:03→22:10)
[2023-05-26] MEDS: DOCUSATE ORAL LIQUID 100 MG/10 ML UD PO SCH ×2 (09:03→22:00)
[2023-05-26] MEDS: METOPROLOL TARTRATE 25 MG TAB PO SCH ×2 (09:04→22:11)
[2023-05-26] MEDS: ASPirin-EC 81 mg tab PO SCH (09:04)
[2023-05-26] MEDS: amLODIPine BESYLATE 5 MG TAB PO SCH (09:04)
[2023-05-26] MEDS: COLCHICINE 0.6 MG CAP PO SCH ×2 (09:04→22:10)
[2023-05-26] MEDS: APIXABAN 5 MG TAB PO SCH ×2 (09:05→22:12)
[2023-05-26] MEDS: LOSARTAN POTASSIUM 25 MG TAB PO SCH (09:05)
[2023-05-26] MEDS: AMIODARONE HCL 200 MG TAB PO SCH ×2 (09:05→22:11)
[2023-05-26] MEDS: ONDANSETRON HCL 4 MG/2 ML VIAL IV PRN ×2 (11:41→20:56)
[2023-05-27 05:00] VITALS: BP 132/72; PULSE 68; RESP 16; TEMP 97.6; O2SAT 99
[2023-05-27] MEDS: LACTULOSE 20Gm/30ML SOLN PO SCH ×3 (06:00→14:20)
[2023-05-27] MEDS: ACCU-CHEK COMFORT CURVE STRIP VI SCH ×3 (06:14→17:14)
[2023-05-27] MEDS: LEVOTHYROXINE SODIUM 88 MCG TAB PO SCH (06:14)
[2023-05-27] MEDS: InsuLIN REG 1unit/0.01ml Soln (100units/ml) SC SCH ×3 (06:16→18:23)
[2023-05-27 07:30] VITALS: PULSE 88; RESP 16; O2SAT 96
[2023-05-27 08:00] VITALS: BP 148/87; PULSE 75; RESP 18; TEMP 97.7; O2SAT 99
[2023-05-27] MEDS: METOPROLOL TARTRATE 25 MG TAB PO SCH (09:42)
[2023-05-27] MEDS: APIXABAN 5 MG TAB PO SCH (09:42)
[2023-05-27] MEDS: COLCHICINE 0.6 MG CAP PO SCH (09:42)
[2023-05-27] MEDS: FUROSEMIDE 40 MG TAB PO SCH (09:43)
[2023-05-27] MEDS: AMIODARONE HCL 200 MG TAB PO SCH (09:43)
[2023-05-27] MEDS: amLODIPine BESYLATE 5 MG TAB PO SCH (09:44)
[2023-05-27] MEDS: ASPirin-EC 81 mg tab PO SCH (09:44)
[2023-05-27] MEDS: LOSARTAN POTASSIUM 25 MG TAB PO SCH (09:45)
[2023-05-27] MEDS: traMADol HCL 50 MG TAB PO PRN (09:49)
[2023-05-27] MEDS: DOCUSATE ORAL LIQUID 100 MG/10 ML UD PO SCH (09:59)
[2023-05-27] MEDS: FAMOTIDINE (10MG/ML) 2ML VL IV SCH (09:59)
[2023-05-27 12:00] VITALS: BP 140/90; PULSE 73; RESP 22; TEMP 97.6; O2SAT 97
[2023-05-27 16:00] VITALS: BP 126/54; PULSE 74; RESP 18; TEMP 97.3; O2SAT 97
== END 2023-05-27 18:24 | DRG 303 ==
LOC: TELE-WESTW 05-24 01:07 → WEST WING 05-24 15:11
PROVIDERS: ADMIT Internal Medicine; ATTEND Internal Medicine
DX: I25.10 Atherosclerotic heart disease of native coronary artery without angina pectoris (principal); R00.2 Palpitations; E11.65 Type 2 diabetes mellitus with hyperglycemia; I48.91 Unspecified atrial fibrillation; I10 Essential (primary) hypertension; R25.1 Tremor, unspecified; E87.6 Hypokalemia; I25.2 Old myocardial infarction; Z95.1 Presence of aortocoronary bypass graft; Z88.5 Allergy status to narcotic agent
CPT/HCPCS: 36415; 73090; 80048; 82962; 85025; 97110; 97116; 97163; 97530; G0378; J2405; J3490

== ENCOUNTER 2023-06-04 20:10 | Inpatient (IN) | payer OTHER ==
[~2023-06-04] VITALS: Ht 165.1 cm; Wt 88.2 kg
[~2023-06-04 20:10] MED LIST changes: -ALBU108A5 IN; +NIFE1TAB31 PO
[2023-06-04 21:59] LABS: Basophils # (auto) 0.1 10 ^3/uL (0-0.2); Basophils % (auto) 1.2 % (0.0-2.0); Eosinophils # (auto) 0.2 10 ^3/uL (0-0.8); Eosinophils % (auto) 3.4 % (0.0-7.0); Hematocrit 34.5 % (36.0-46.0); Hemoglobin 11.5 g/dL (12.2-16.2); Lymphocytes # (auto) 0.8 10 ^3/uL (0.4-5.4); Mean Corpuscular Hgb Conc. 33.3 g/dL (32.0-36.0); Mean Corpuscular Volume 81.1 fL (80.0-100.0); Monocytes # (auto) 0.6 10 ^3/uL (0-1.3); Monocytes % (auto) 14.2 % (0.0-12.0); Neutrophils # (auto) 2.7 10 ^3/uL (1.6-8.6); Neutrophils % (auto) 62.2 % (37.0-80.0); Nucleated Red Blood Cells % 0.4 %; Red Blood Cells 4.26 10^6/uL (4.0-5.20); Red Cell Distribution Width 16.4 % (11.8-14.3); White Blood Cell 4.4 10^3/uL (4.4-10.8)
[2023-06-04 22:15] LABS: Alanine Aminotransferase 25 U/L (7-40); Alkaline Phosphatase 159 U/L (46-116); Anion Gap 6 (5-15); Aspartate Aminotransferase 38 U/L (13-40); Blood Urea Nitrogen 17 mg/dL (9-23); Calcium 9.2 mg/dL (8.7-10.4); Carbon Dioxide 29 mmol/L (20-30); Chloride 96 mmol/L (98-107); Glucose 102 mg/dL (74-106); Potassium 3.7 mmol/L (3.5-5.1); Sodium 131 mmol/L (136-145); Total Protein 6.4 g/dL (5.7-8.2)
[2023-06-04 23:20] VITALS: PULSE 95; RESP 18; O2SAT 95
[2023-06-04] MEDS ORDERED: ONDANSETRON HCL 4 MG/2 ML VIAL IV ONE (23:30)
[2023-06-04] MEDS ORDERED: ONDANSETRON HCL 4 MG/2 ML VIAL ONE (23:35)
[2023-06-05 01:55] LABS: Urine Bacteria NONE SEEN /hpf (None Seen); Urine Blood Negative /uL (Negative); Urine Clarity HAZY (Clear); Urine Color Yellow (Yellow); Urine Protein, UAD TRACE (Negative); Urine Specific Gravity 1.013 (1.001-1.035); Urine Urobilinogen Normal (Negative); Urine WBC 139 /hpf (0 - 5); Urine pH 5.5 (5.0-8.0)
[2023-06-05] MEDS ORDERED: ACETAMINOPHEN 500 MG TAB PO ONE (02:15)
[2023-06-05] MEDS ORDERED: OXYCODONE W/ ACETAMINOPHEN 5/325MG TABLET PO ONE (03:45)
[2023-06-05] MEDS ORDERED: cefTRIAXone 1GM/50ML D5W 50 ML IV ONE (05:00)
[2023-06-05] MEDS ORDERED: ENOXAPARIN SOD 100 MG/1 ML SYRINGE SC ONE (05:45)
[2023-06-05] MEDS ORDERED: ASPirin 325 MG TAB PO ONE (05:45)
[2023-06-05] MEDS ORDERED: MORPHINE SULFATE INJ 2 MG/ml SYRG IV PRN (06:15)
[2023-06-05] MEDS ORDERED: ACETAMINOPHEN 325 MG TAB PO PRN (06:15)
[2023-06-05] MEDS ORDERED: DEXTROSE (50%) 50ML SYRG IV PRN (06:15)
[2023-06-05] MEDS ORDERED: ONDANSETRON HCL 4 MG/2 ML VIAL IV PRN (06:15)
[2023-06-05] MEDS ORDERED: NITROGLYCERIN 0.4 MG SL TAB SL PRN (06:15)
[2023-06-05] MEDS: ACCU-CHEK COMFORT CURVE STRIP VI SCH ×2 (06:37→11:58)
[2023-06-05] MEDS: InsuLIN REG 1unit/0.01ml Soln (100units/ml) SC SCH ×2 (06:37→11:30)
[2023-06-05] MEDS ORDERED: LEVOTHYROXINE SODIUM 88 MCG TAB PO SCH (07:00)
[2023-06-05] MEDS ORDERED: LOSARTAN POTASSIUM 50 MG TAB PO SCH (10:00)
[2023-06-05] MEDS ORDERED: ASPirin 81 mg TAB PO SCH (10:00)
[2023-06-05] MEDS ORDERED: FUROSEMIDE 40 MG TAB PO SCH (10:00)
[2023-06-05] MEDS ORDERED: METOPROLOL TARTRATE 50 MG TAB PO SCH (10:00)
[2023-06-05 12:19] VITALS: PULSE 72; RESP 20; O2SAT 97
[2023-06-05] MEDS ORDERED: VANCOMYCIN HCL 125MG/5ML ORAL SOL PO SCH (13:15)
[2023-06-05] MEDS ORDERED: metroNIDAZOLE 500MG/100ML 100 ML IV SCH (14:00)
[2023-06-05 14:11] LABS: Amphetamine Screen, Urine Neg (NEGATIVE); Barbiturate Scree,Urine Neg (NEGATIVE); Benzodiazephine Screen, Urine Neg (NEGATIVE); Cannabinoid Screen, Urine Neg (NEGATIVE); Cocaine Screen, Urine Neg (NEGATIVE); Opiate Scree,Urine Neg (NEGATIVE); Phencyclidine Screen, Urine Neg (NEGATIVE)
[2023-06-05 16:20] VITALS: BP 120/65; PULSE 70; RESP 16; O2SAT 94
[2023-06-05] MEDS ORDERED: APIXABAN 2.5 MG TAB PO SCH (22:00)
[2023-06-05] MEDS ORDERED: APIXABAN 5 MG TAB PO SCH (22:00)
[2023-06-05] MEDS ORDERED: AMIODARONE HCL 200 MG TAB PO SCH (22:00)
[2023-06-05] MEDS ORDERED: ATORVASTATIN 20 MG TAB PO SCH (22:00)
[2023-06-06] MEDS ORDERED: ASPirin 81 mg TAB PO SCH (10:00)
== END 2023-06-05 16:40 | DRG 371 ==
LOC: ER 20:10 → EDBD 20:10 → TELE 06-05 06:09
PROVIDERS: ADMIT Internal Medicine
DX: A04.72 Enterocolitis due to Clostridium difficile, not specified as recurrent (principal); I21.4 Non-ST elevation (NSTEMI) myocardial infarction; K21.9 Gastro-esophageal reflux disease without esophagitis; I10 Essential (primary) hypertension; E11.9 Type 2 diabetes mellitus without complications; E78.5 Hyperlipidemia, unspecified; I25.10 Atherosclerotic heart disease of native coronary artery without angina pectoris; I48.0 Paroxysmal atrial fibrillation; E66.9 Obesity, unspecified; E07.9 Disorder of thyroid, unspecified; Z88.5 Allergy status to narcotic agent; I25.2 Old myocardial infarction; Z90.710 Acquired absence of both cervix and uterus; Z90.49 Acquired absence of other specified parts of digestive tract; Z95.1 Presence of aortocoronary bypass graft; Z82.5 Family history of asthma and other chronic lower respiratory diseases; Z83.3 Family history of diabetes mellitus; Z79.84 Long term (current) use of oral hypoglycemic drugs; Z87.891 Personal history of nicotine dependence; Z68.32 Body mass index [BMI] 32.0-32.9, adult
CPT/HCPCS: 36415; 71045; 74176; 80053; 80307; 81001; 82962; 83690; 83880; 84484; 85025; 93005; 96365; 96375; G0378; J0696; J2405; J3490

== ENCOUNTER 2023-06-10 00:21 | Inpatient (IN) | payer OTHER ==
[~2023-06-10] VITALS: Ht 165.1 cm; Wt 86.6 kg
[2023-06-10 01:07] LABS: Basophils # (auto) 0 10 ^3/uL (0-0.2); Basophils % (auto) 0.3 % (0.0-2.0); Eosinophils # (auto) 0 10 ^3/uL (0-0.8); Eosinophils % (auto) 0.5 % (0.0-7.0); Hematocrit 37.3 % (36.0-46.0); Hemoglobin 12.5 g/dL (12.2-16.2); Lymphocytes # (auto) 0.7 10 ^3/uL (0.4-5.4); Mean Corpuscular Hemoglobin 27.1 pg (28.0-32.0); Mean Corpuscular Hgb Conc. 33.4 g/dL (32.0-36.0); Mean Corpuscular Volume 81.3 fL (80.0-100.0); Monocytes # (auto) 0.6 10 ^3/uL (0-1.3); Monocytes % (auto) 12.3 % (0.0-12.0); Neutrophils # (auto) 3.4 10 ^3/uL (1.6-8.6); Neutrophils % (auto) 72.9 % (37.0-80.0); Nucleated Red Blood Cells % 0.3 %; Red Blood Cells 4.59 10^6/uL (4.0-5.20); Red Cell Distribution Width 16.4 % (11.8-14.3); White Blood Cell 4.7 10^3/uL (4.4-10.8)
[2023-06-10] MEDS ORDERED: IOHEXOL 350 MG/ML 100ML IJ ONE (01:22)
[2023-06-10 01:23] LABS: Alanine Aminotransferase 63 U/L (7-40); Albumin 4.2 g/dL (3.2-4.8); Alkaline Phosphatase 159 U/L (46-116); Anion Gap 11 (5-15); Aspartate Aminotransferase 82 U/L (13-40); BUN/Creatinine Ratio 15.4 (10.0-20.0); Blood Urea Nitrogen 27 mg/dL (9-23); Carbon Dioxide 25 mmol/L (20-30); Chloride 93 mmol/L (98-107); Glucose 107 mg/dL (74-106); Lipase 34 U/L (12-53); Magnesium 2.6 mg/dL (1.6-2.6); Potassium 3.2 mmol/L (3.5-5.1); Sodium 129 mmol/L (136-145)
[2023-06-10 01:24] VITALS: PULSE 79; RESP 16; O2SAT 99
[2023-06-10 01:24] LABS: Bilirubin, Total 1.1 mg/dL (0.2-1.0); Total Protein 6.7 g/dL (5.7-8.2)
[2023-06-10 01:36] LABS: INR 1.24 (0.9-1.15); Partial Thromboplastin Time 33.4 SEC (24.5-34.5); Prothrombin Time 12.8 sec (9.3-11.8)
[2023-06-10 01:48] LABS: Amylase 37 U/L (30-118)
[2023-06-10] MEDS ORDERED: ONDANSETRON HCL 4 MG/2 ML VIAL IV ONE (05:15)
[2023-06-10] MEDS ORDERED: cefTRIAXone SOD 1,000 MG VL IM ONE (05:45)
[2023-06-10] MEDS ORDERED: ENOXAPARIN SOD 100 MG/1 ML SYRINGE SC ONE (05:45)
[2023-06-10] MEDS ORDERED: LACTATED RINGER'S 2,000 ML IV ONE ×2 (05:45)
[2023-06-10] MEDS ORDERED: ASPirin 325 MG TAB PO ONE (05:45)
[2023-06-10] MEDS ORDERED: metroNIDAZOLE 500MG/100ML 100 ML IV ONE (05:45)
[2023-06-10] MEDS ORDERED: PANTOPRAZOLE 40mg/50ML NS AE 50 ML IV ONE (06:15)
[2023-06-10] MEDS ORDERED: DEXTROSE (50%) 50ML SYRG IV PRN ×2 (06:15→11:30)
[2023-06-10] MEDS ORDERED: NITROGLYCERIN 0.4 MG SL TAB SL PRN (06:15)
[2023-06-10] MEDS ORDERED: IBUPROFEN 400 MG TAB PO PRN (06:15)
[2023-06-10] MEDS ORDERED: PANTOPRAZOLE 80 MG in SODIUM CHL 0.9% 100 ML IV ONE (06:15)
[2023-06-10] MEDS ORDERED: POTASSIUM CHL 20 Meq TABLET PO ONE (06:15)
[2023-06-10] MEDS ORDERED: PANTOPRAZOLE 40 MG/10 ML VIAL INJ IV ONE (06:30)
[2023-06-10 07:25] LABS: Alanine Aminotransferase 68 U/L (7-40); Albumin 4.3 g/dL (3.2-4.8); Alkaline Phosphatase 238 U/L (46-116); Anion Gap 12 (5-15); Aspartate Aminotransferase 87 U/L (13-40); BUN/Creatinine Ratio 18.6 (10.0-20.0); Blood Urea Nitrogen 32 mg/dL (9-23); Calcium 9.2 mg/dL (8.5-10.1); Carbon Dioxide 26 mmol/L (20-30); Chloride 92 mmol/L (98-107); Glucose 104 mg/dL (74-106); Potassium 3.3 mmol/L (3.5-5.1); Sodium 130 mmol/L (136-145)
[2023-06-10 07:26] LABS: Bilirubin, Total 0.9 mg/dL (0.2-1.0); Total Protein 6.7 g/dL (5.7-8.2)
[2023-06-10 07:28] LABS: Basophils # (auto) 0 10 ^3/uL (0-0.2); Eosinophils # (auto) 0 10 ^3/uL (0-0.8); Hemoglobin 12.4 g/dL (12.2-16.2); Lymphocytes # (auto) 0.6 10 ^3/uL (0.4-5.4); Monocytes # (auto) 0.5 10 ^3/uL (0-1.3); Neutrophils # (auto) 3.7 10 ^3/uL (1.6-8.6)
[2023-06-10 07:29] LABS: Basophils % (auto) 0.4 % (0.0-2.0); Eosinophils % (auto) 0.4 % (0.0-7.0); Hematocrit 37.2 % (36.0-46.0); Lymphocytes % (auto) 11.5 % (10.0-50.0); Mean Corpuscular Hemoglobin 27.1 pg (28.0-32.0); Mean Corpuscular Hgb Conc. 33.4 g/dL (32.0-36.0); Mean Corpuscular Volume 81.2 fL (80.0-100.0); Neutrophils % (auto) 76.7 % (37.0-80.0); Nucleated Red Blood Cells % 0.4 %; Red Blood Cells 4.58 10^6/uL (4.0-5.20); Red Cell Distribution Width 16.3 % (11.8-14.3); White Blood Cell 4.8 10^3/uL (4.4-10.8)
[2023-06-10 08:00] VITALS: PULSE 84; RESP 15; O2SAT 95
[2023-06-10] MEDS: SODIUM CHLORIDE 0.9% 1,000 ML IV SCH ×2 (08:00→23:22)
[2023-06-10] MEDS ORDERED: APIXABAN 2.5 MG TAB PO SCH ×2 (10:00→22:00)
[2023-06-10] MEDS ORDERED: ASPirin 81 mg TAB PO SCH (10:00)
[2023-06-10] MEDS ORDERED: PANTOPRAZOLE 40mg/50ML NS AE 50 ML IV SCH (11:30)
[2023-06-10] MEDS ORDERED: hydrALAZINE HCL 20 MG/ML VL IV PRN (11:45)
[2023-06-10] MEDS: ACCU-CHEK COMFORT CURVE STRIP VI SCH ×3 (11:54→20:00)
[2023-06-10] MEDS: InsuLIN REG 1unit/0.01ml Soln (100units/ml) SC SCH ×3 (11:54→20:00)
[2023-06-10] MEDS ORDERED: ACCU-CHEK COMFORT CURVE STRIP VI SCH (12:00)
[2023-06-10] MEDS ORDERED: InsuLIN REG 1unit/0.01ml Soln (100units/ml) SC SCH (12:00)
[2023-06-10] MEDS ORDERED: AMIO200T13 PO (12:45)
[2023-06-10] MEDS: VANCOMYCIN HCL 125MG/5ML ORAL SOL PO SCH ×2 (13:12→23:08)
[2023-06-10] MEDS: METOPROLOL TARTRATE 50 MG TAB PO SCH ×2 (13:16→23:08)
[2023-06-10] MEDS: metroNIDAZOLE 500MG/100ML 100 ML IV SCH (13:16)
[2023-06-10 20:00] VITALS: PULSE 86; RESP 15; O2SAT 96
[2023-06-10] MEDS ORDERED: METOPROLOL TARTRATE 25 MG TAB PO SCH (22:00)
[2023-06-10] MEDS ORDERED: APIXABAN 5 MG TAB PO SCH (22:00)
[2023-06-10] MEDS ORDERED: ATORVASTATIN 20 MG TAB PO SCH ×2 (22:00)
[2023-06-10 22:21] VITALS: BP 150/73; PULSE 70; PULSE 74; RESP 16; RESP 18; TEMP 97.3; O2SAT 97
[2023-06-10] MEDS: AMIODARONE HCL 200 MG TAB PO SCH (23:07)
[2023-06-10] MEDS: FUROSEMIDE 40 MG/4 ML VIAL IV SCH (23:22)
[2023-06-10] MEDS: POTASSIUM CHL 20MEQ/100ML 100 ML IV SCH (23:22)
[2023-06-11] VITALS (8 sets, daily range): BP systolic 107–156; BP diastolic 63–79; PULSE 61–72; RESP 16–19; TEMP 97.4–97.5; O2SAT 95–100
[2023-06-11] MEDS: metroNIDAZOLE 500MG/100ML 100 ML IV SCH ×4 (01:26→22:00)
[2023-06-11] MEDS: ACCU-CHEK COMFORT CURVE STRIP VI SCH ×7 (01:34→23:40)
[2023-06-11] MEDS: InsuLIN REG 1unit/0.01ml Soln (100units/ml) SC SCH ×7 (01:34→23:40)
[2023-06-11] MEDS ORDERED: LOS25T PO (02:06)
[2023-06-11] MEDS ORDERED: LOSA100T58 PO (02:07)
[2023-06-11] MEDS ORDERED: CLON0.3T PO (02:12)
[2023-06-11] MEDS ORDERED: HYDR25TA87 PO (02:12)
[2023-06-11] MEDS ORDERED: APIX2.5T PO (02:12)
[2023-06-11] MEDS: POTASSIUM CHL 20MEQ/100ML 100 ML IV SCH (02:50)
[2023-06-11 05:24] LABS: Protein, Urine 14.2 mg/dL (0.0-11.9)
[2023-06-11 05:27] LABS: Creatinine, Urine 25.91 mg/dL (30.0-125.0); Urine Protein/Creatinine Ratio 0.55
[2023-06-11 05:33] LABS: Urine Bacteria NONE SEEN /hpf (None Seen); Urine Blood 1+ /uL (Negative); Urine Clarity HAZY (Clear); Urine Color Colorless (Yellow); Urine Protein, UAD Negative (Negative); Urine Specific Gravity 1.013 (1.001-1.035); Urine Urobilinogen Normal (Negative); Urine WBC 337 /hpf (0 - 5); Urine pH 6.5 (5.0-8.0)
[2023-06-11] MEDS: VANCOMYCIN HCL 125MG/5ML ORAL SOL PO SCH ×4 (06:00→22:03)
[2023-06-11 06:34] LABS: Basophils # (auto) 0 10 ^3/uL (0-0.2); Basophils % (auto) 0.7 % (0.0-2.0); Eosinophils # (auto) 0.1 10 ^3/uL (0-0.8); Eosinophils % (auto) 1.8 % (0.0-7.0); Hematocrit 36.6 % (36.0-46.0); Lymphocytes # (auto) 0.8 10 ^3/uL (0.4-5.4); Lymphocytes % (auto) 14.4 % (10.0-50.0); Mean Corpuscular Hemoglobin 27.2 pg (28.0-32.0); Mean Corpuscular Hgb Conc. 32.7 g/dL (32.0-36.0); Mean Corpuscular Volume 83.1 fL (80.0-100.0); Monocytes % (auto) 17.2 % (0.0-12.0); Neutrophils # (auto) 3.8 10 ^3/uL (1.6-8.6); Neutrophils % (auto) 65.9 % (37.0-80.0); Nucleated Red Blood Cells % 0.4 %; Red Cell Distribution Width 16.5 % (11.8-14.3); White Blood Cell 5.8 10^3/uL (4.4-10.8)
[2023-06-11 06:46] LABS: Alanine Aminotransferase 64 U/L (7-40); Albumin 3.7 g/dL (3.2-4.8); Alkaline Phosphatase 133 U/L (46-116); Anion Gap 8 (5-15); Aspartate Aminotransferase 96 U/L (13-40); BUN/Creatinine Ratio 12.1 (10.0-20.0); Blood Urea Nitrogen 14 mg/dL (9-23); Calcium 8.6 mg/dL (8.5-10.1); Carbon Dioxide 23 mmol/L (20-30); Chloride 101 mmol/L (98-107); Glucose 71 mg/dL (74-106); Potassium 4.3 mmol/L (3.5-5.1); Sodium 132 mmol/L (136-145)
[2023-06-11 06:47] LABS: Bilirubin, Total 0.7 mg/dL (0.2-1.0); Total Protein 5.9 g/dL (5.7-8.2)
[2023-06-11] MEDS ORDERED: EMPAGLIFLOZIN 10 MG TAB PO SCH (07:00)
[2023-06-11] MEDS: AMIODARONE HCL 200 MG TAB PO SCH (09:10)
[2023-06-11] MEDS: NIFEdipine ER 30 MG TAB PO SCH (09:11)
[2023-06-11] MEDS: FUROSEMIDE 40 MG/4 ML VIAL IV SCH (09:12)
[2023-06-11] MEDS: METOPROLOL TARTRATE 50 MG TAB PO SCH ×2 (09:12→22:00)
[2023-06-11] MEDS ORDERED: cefTRIAXone 1GM/50ML D5W 50 ML IV ONE (15:15)
[2023-06-12] VITALS (15 sets, daily range): BP systolic 90–128; BP diastolic 50–76; PULSE 64–79; RESP 10–20; TEMP 96.6–98.4; O2SAT 94–99
[2023-06-12] MEDS: InsuLIN REG 1unit/0.01ml Soln (100units/ml) SC SCH ×6 (04:00→23:47)
[2023-06-12] MEDS: ACCU-CHEK COMFORT CURVE STRIP VI SCH ×6 (04:14→23:47)
[2023-06-12] MEDS: VANCOMYCIN HCL 125MG/5ML ORAL SOL PO SCH ×4 (05:55→22:09)
[2023-06-12] MEDS: metroNIDAZOLE 500MG/100ML 100 ML IV SCH ×3 (05:55→21:56)
[2023-06-12 06:24] LABS: Hematocrit 33.5 % (36.0-46.0); Hemoglobin 11.1 g/dL (12.2-16.2); Mean Corpuscular Hgb Conc. 33.1 g/dL (32.0-36.0); Mean Corpuscular Volume 81.6 fL (80.0-100.0); Red Cell Distribution Width 16.5 % (11.8-14.3); White Blood Cell 4.7 10^3/uL (4.4-10.8)
[2023-06-12 06:31] LABS: Alanine Aminotransferase 49 U/L (7-40); Albumin 2.5 g/dL (3.2-4.8); Alkaline Phosphatase 82 U/L (46-116); Anion Gap 12 (5-15); Aspartate Aminotransferase 63 U/L (13-40); BUN/Creatinine Ratio 20.4 (10.0-20.0); Blood Urea Nitrogen 11 mg/dL (9-23); Carbon Dioxide 21 mmol/L (20-30); Chloride 100 mmol/L (98-107); Glucose 69 mg/dL (74-106); Potassium 3.5 mmol/L (3.5-5.1); Sodium 133 mmol/L (136-145)
[2023-06-12 06:32] LABS: Bilirubin, Total 0.4 mg/dL (0.2-1.0); Total Protein 3.9 g/dL (5.7-8.2)
[2023-06-12 06:40] LABS: Calcium 5.9 mg/dL (8.5-10.1)
[2023-06-12 06:42] LABS: Band Neutrophils % (manual) 0; Basophils % (manual) 0 (0.0-2.0); Blast Cells 0; Metamyelocytes % 0; Myelocytes % 0; Promyelocytes % 0; Reactive Lymphocytes 0
[2023-06-12] MEDS ORDERED: POTASSIUM EFFERVESENT TAB 25 MEQ PO ONE (08:45)
[2023-06-12] MEDS: AMIODARONE HCL 200 MG TAB PO SCH ×2 (10:00→21:56)
[2023-06-12] MEDS ORDERED: SACUBITRIL-VALSARTAN 24mg/26mg TAB PO SCH (10:00)
[2023-06-12 10:19] LABS: Eosinophils % (manual) 2 (0-7); Lymphocytes % (manual) 17 (10.0-50.0); Monocytes % (manual) 12 (0-12); Platelet Estimate Adequate
[2023-06-12] MEDS: cefTRIAXone 1GM/50ML D5W 50 ML IV SCH (10:59)
[2023-06-12] MEDS: ASPirin 81 mg TAB PO SCH (11:06)
[2023-06-12] MEDS: METOPROLOL TARTRATE 50 MG TAB PO SCH ×2 (11:07→22:00)
[2023-06-12] MEDS: NIFEdipine ER 30 MG TAB PO SCH (11:08)
[2023-06-12] MEDS: SACUBITRIL-VALSARTAN 24mg/26mg TAB PO SCH ×2 (11:26→22:00)
[2023-06-12] MEDS ORDERED: PANTOPRAZOLE 40 MG/10 ML VIAL INJ IV ONE (12:30)
[2023-06-12] MEDS ORDERED: EMPAGLIFLOZIN 10 MG TAB PO SCH (12:38)
[2023-06-12] MEDS ORDERED: SPIRONOLACTONE 25 MG TAB PO SCH (12:38)
[2023-06-12] MEDS ORDERED: IOHEXOL 350 MG/ML 100ML IJ ONE ×2 (17:20→18:39)
[2023-06-12] MEDS ORDERED: LIDOCAINE 2%HCL (LOCAL ANESTH.) INJ 20ML MDV ONE (17:20)
[2023-06-12] MEDS ORDERED: HEPARIN 1,000 UNITS/ml 1ML VIAL ONE (17:39)
[2023-06-12] MEDS: PANTOPRAZOLE 40 MG/10 ML VIAL INJ IV SCH (21:56)
[2023-06-12] MEDS ORDERED: APIXABAN 2.5 MG TAB PO SCH (22:00)
[2023-06-13] VITALS (7 sets, daily range): BP systolic 93–115; BP diastolic 51–64; PULSE 60–85; RESP 17–20; TEMP 97.6–98.1; O2SAT 92–99
[2023-06-13] MEDS ORDERED: SODIUM CHLORIDE 0.9% 250 ML IV ONE (00:30)
[2023-06-13 00:55] LABS: Hematocrit 34.7 % (36.0-46.0); Hemoglobin 11.4 g/dL (12.2-16.2); Mean Corpuscular Hemoglobin 27.1 pg (28.0-32.0); Mean Corpuscular Volume 82.1 fL (80.0-100.0); Red Blood Cells 4.22 10^6/uL (4.0-5.20); Red Cell Distribution Width 16.7 % (11.8-14.3); White Blood Cell 5.3 10^3/uL (4.4-10.8)
[2023-06-13 01:12] LABS: Band Neutrophils % (manual) 0; Basophils % (manual) 0 (0.0-2.0); Blast Cells 0; Metamyelocytes % 0; Myelocytes % 0; Promyelocytes % 0; Reactive Lymphocytes 0
[2023-06-13] MEDS: ACCU-CHEK COMFORT CURVE STRIP VI SCH ×5 (03:53→20:10)
[2023-06-13] MEDS: InsuLIN REG 1unit/0.01ml Soln (100units/ml) SC SCH ×6 (03:53→23:59)
[2023-06-13] MEDS: VANCOMYCIN HCL 125MG/5ML ORAL SOL PO SCH ×4 (06:01→22:03)
[2023-06-13] MEDS: metroNIDAZOLE 500MG/100ML 100 ML IV SCH ×3 (06:01→22:05)
[2023-06-13 07:00] LABS: Hematocrit 33.8 % (36.0-46.0); Hemoglobin 11.1 g/dL (12.2-16.2); Mean Corpuscular Hemoglobin 27.3 pg (28.0-32.0); Mean Corpuscular Hgb Conc. 32.7 g/dL (32.0-36.0); Mean Corpuscular Volume 83.3 fL (80.0-100.0); Red Blood Cells 4.06 10^6/uL (4.0-5.20); Red Cell Distribution Width 16.6 % (11.8-14.3)
[2023-06-13 07:12] LABS: Alanine Aminotransferase 66 U/L (7-40); Albumin 3.5 g/dL (3.2-4.8); Alkaline Phosphatase 110 U/L (46-116); Anion Gap 8 (5-15); Aspartate Aminotransferase 69 U/L (13-40); BUN/Creatinine Ratio 16.5 (10.0-20.0); Blood Urea Nitrogen 15 mg/dL (9-23); Calcium 8.7 mg/dL (8.7-10.4); Carbon Dioxide 26 mmol/L (20-30); Chloride 100 mmol/L (98-107); Glucose 111 mg/dL (74-106); Potassium 4.2 mmol/L (3.5-5.1); Sodium 134 mmol/L (136-145)
[2023-06-13 07:14] LABS: Bilirubin, Total 0.6 mg/dL (0.2-1.0); Total Protein 5.6 g/dL (5.7-8.2)
[2023-06-13 07:21] LABS: Band Neutrophils % (manual) 0; Basophils % (manual) 0 (0.0-2.0); Blast Cells 0; Metamyelocytes % 0; Myelocytes % 0; Promyelocytes % 0; Reactive Lymphocytes 0
[2023-06-13] MEDS: cefTRIAXone 1GM/50ML D5W 50 ML IV SCH (09:01)
[2023-06-13] MEDS: PANTOPRAZOLE 40 MG/10 ML VIAL INJ IV SCH ×2 (09:06→22:02)
[2023-06-13] MEDS: ASPirin 81 mg TAB PO SCH (09:07)
[2023-06-13] MEDS: SACUBITRIL-VALSARTAN 24mg/26mg TAB PO SCH ×2 (10:00→22:00)
[2023-06-13] MEDS: AMIODARONE HCL 200 MG TAB PO SCH ×2 (10:00→22:00)
[2023-06-13 11:18] LABS: Eosinophils % (manual) 2 (0-7); Lymphocytes % (manual) 14 (10.0-50.0); Monocytes % (manual) 22 (0-12); Platelet Estimate Adequate
[2023-06-13 11:20] LABS: Eosinophils % (manual) 1 (0-7); Lymphocytes % (manual) 18 (10.0-50.0); Monocytes % (manual) 24 (0-12)
[2023-06-13 11:21] LABS: Platelet Estimate Adequate
[2023-06-13] MEDS: ONDANSETRON HCL 4 MG/2 ML VIAL IV PRN ×2 (12:14→17:50)
[2023-06-13] MEDS: METOPROLOL TARTRATE 25 MG TAB PO SCH (22:00)
[2023-06-14] MEDS: ACCU-CHEK COMFORT CURVE STRIP VI SCH ×6 (03:50→20:00)
[2023-06-14] MEDS: InsuLIN REG 1unit/0.01ml Soln (100units/ml) SC SCH ×5 (03:50→20:00)
[2023-06-14 05:00] VITALS: BP 102/60; PULSE 83; RESP 18; TEMP 98.1; O2SAT 97
[2023-06-14 05:54] LABS: Alanine Aminotransferase 51 U/L (7-40); Alkaline Phosphatase 102 U/L (46-116); Anion Gap 8 (5-15); BUN/Creatinine Ratio 15.6 (10.0-20.0); Blood Urea Nitrogen 15 mg/dL (9-23); Calcium 8.7 mg/dL (8.7-10.4); Carbon Dioxide 27 mmol/L (20-30); Chloride 99 mmol/L (98-107); Glucose 111 mg/dL (74-106); Magnesium 2.1 mg/dL (1.6-2.6); Potassium 4.1 mmol/L (3.5-5.1); Sodium 134 mmol/L (136-145)
[2023-06-14 05:55] LABS: Albumin 3.5 g/dL (3.2-4.8); Aspartate Aminotransferase 46 U/L (13-40); Bilirubin, Total 0.6 mg/dL (0.2-1.0); Total Protein 5.6 g/dL (5.7-8.2)
[2023-06-14] MEDS: metroNIDAZOLE 500MG/100ML 100 ML IV SCH ×3 (06:02→22:23)
[2023-06-14] MEDS: EMPAGLIFLOZIN 10 MG TAB PO SCH (06:03)
[2023-06-14] MEDS: VANCOMYCIN HCL 125MG/5ML ORAL SOL PO SCH ×4 (06:03→22:22)
[2023-06-14 06:13] LABS: Hemoglobin 10.7 g/dL (12.2-16.2); Mean Corpuscular Hemoglobin 27.4 pg (28.0-32.0); Mean Corpuscular Hgb Conc. 33.5 g/dL (32.0-36.0); Mean Corpuscular Volume 81.7 fL (80.0-100.0); Red Blood Cells 3.92 10^6/uL (4.0-5.20); Red Cell Distribution Width 16.7 % (11.8-14.3); White Blood Cell 4.1 10^3/uL (4.4-10.8)
[2023-06-14 06:44] LABS: Basophils % (manual) 0 (0.0-2.0); Blast Cells 0; Eosinophils % (manual) 0 (0-7); Metamyelocytes % 0; Myelocytes % 0; Promyelocytes % 0; Reactive Lymphocytes 0
[2023-06-14 08:00] VITALS: BP 110/61; PULSE 83; PULSE 89; PULSE 90; RESP 18; TEMP 98.6; O2SAT 95; O2SAT 99
[2023-06-14] MEDS: PANTOPRAZOLE 40 MG/10 ML VIAL INJ IV SCH ×2 (08:25→22:21)
[2023-06-14] MEDS: ONDANSETRON HCL 4 MG/2 ML VIAL IV PRN (08:25)
[2023-06-14] MEDS: ASPirin 81 mg TAB PO SCH (08:28)
[2023-06-14] MEDS: METOPROLOL TARTRATE 25 MG TAB PO SCH ×2 (08:28→22:22)
[2023-06-14] MEDS: POTASSIUM CHL 20 Meq TABLET PO SCH (08:28)
[2023-06-14] MEDS: cefTRIAXone 1GM/50ML D5W 50 ML IV SCH (08:29)
[2023-06-14 09:27] LABS: Band Neutrophils % (manual) 2; Lymphocytes % (manual) 14 (10.0-50.0); Monocytes % (manual) 16 (0-12); Platelet Estimate Adequate
[2023-06-14] MEDS: SACUBITRIL-VALSARTAN 24mg/26mg TAB PO SCH ×2 (10:00→22:21)
[2023-06-14] MEDS: AMIODARONE HCL 200 MG TAB PO SCH ×3 (10:00→22:22)
[2023-06-14 13:00] VITALS: BP 123/67; PULSE 85; RESP 22; TEMP 98.6; O2SAT 93
[2023-06-14] MEDS ORDERED: VANCOMYCIN 1GM/250ML 0 ML IV ONE (13:12)
[2023-06-14 16:50] VITALS: BP 136/72; PULSE 83; RESP 20; TEMP 98.6; O2SAT 94
[2023-06-14 20:00] VITALS: PULSE 84; PULSE 88; RESP 18; O2SAT 99
[2023-06-14 22:00] VITALS: BP 115/69; PULSE 84; RESP 17; TEMP 97.5; O2SAT 99
[2023-06-15] MEDS: ACCU-CHEK COMFORT CURVE STRIP VI SCH ×4 (00:27→12:00)
[2023-06-15] MEDS: InsuLIN REG 1unit/0.01ml Soln (100units/ml) SC SCH ×4 (04:00→12:00)
[2023-06-15 05:00] VITALS: BP 115/66; PULSE 79; RESP 20; TEMP 97.7; O2SAT 97
[2023-06-15] MEDS: metroNIDAZOLE 500MG/100ML 100 ML IV SCH (06:26)
[2023-06-15] MEDS: VANCOMYCIN HCL 125MG/5ML ORAL SOL PO SCH ×2 (06:26→12:00)
[2023-06-15] MEDS: EMPAGLIFLOZIN 10 MG TAB PO SCH (06:26)
[2023-06-15 08:00] VITALS: PULSE 80; PULSE 83; O2SAT 99
[2023-06-15] MEDS: PANTOPRAZOLE 40 MG/10 ML VIAL INJ IV SCH (08:42)
[2023-06-15] MEDS: cefTRIAXone 1GM/50ML D5W 50 ML IV SCH (08:52)
[2023-06-15 09:00] VITALS: BP 99/58; PULSE 76; RESP 19; TEMP 97.2; O2SAT 99
[2023-06-15] MEDS: METOPROLOL TARTRATE 25 MG TAB PO SCH (10:00)
[2023-06-15] MEDS: AMIODARONE HCL 200 MG TAB PO SCH (10:32)
[2023-06-15] MEDS: POTASSIUM CHL 20 Meq TABLET PO SCH (10:34)
[2023-06-15] MEDS: ASPirin 81 mg TAB PO SCH (10:35)
[2023-06-15] MEDS: SACUBITRIL-VALSARTAN 24mg/26mg TAB PO SCH (10:35)
[2023-06-15] MEDS: ONDANSETRON HCL 4 MG/2 ML VIAL IV PRN (10:52)
[2023-06-15 13:04] VITALS: BP 114/69; PULSE 79; RESP 20; TEMP 97.4; O2SAT 98
== END 2023-06-15 14:27 | DRG 377 ==
LOC: EDBD 00:21 → ER 00:21 → EDUNIT# 00:21 → TELE 06:22 → TELE-WESTW 22:01
PROVIDERS: ADMIT Internal Medicine; ATTEND Internal Medicine
PROC: B2111ZZ Fluoroscopy of Multiple Coronary Arteries using Low Osmolar Contrast (ICD-10-PCS; principal; 2023-06-12)
PROC: B2131ZZ Fluoroscopy of Multiple Coronary Artery Bypass Grafts using Low Osmolar Contrast (ICD-10-PCS; 2023-06-12)
PROC: B2181ZZ Fluoroscopy of Left Internal Mammary Bypass Graft using Low Osmolar Contrast (ICD-10-PCS; 2023-06-12)
PROC: B41F1ZZ Fluoroscopy of Right Lower Extremity Arteries using Low Osmolar Contrast (ICD-10-PCS; 2023-06-12)
DX: K29.71 Gastritis, unspecified, with bleeding (principal); I21.4 Non-ST elevation (NSTEMI) myocardial infarction; I50.23 Acute on chronic systolic (congestive) heart failure; N17.0 Acute kidney failure with tubular necrosis; I13.0 Hypertensive heart and chronic kidney disease with heart failure and stage 1 through stage 4 chronic kidney disease, or unspecified chronic kidney disease; E87.1 Hypo-osmolality and hyponatremia; N18.4 Chronic kidney disease, stage 4 (severe); E11.22 Type 2 diabetes mellitus with diabetic chronic kidney disease; E78.5 Hyperlipidemia, unspecified; E03.9 Hypothyroidism, unspecified; E87.6 Hypokalemia; I16.0 Hypertensive urgency; K21.9 Gastro-esophageal reflux disease without esophagitis; R19.7 Diarrhea, unspecified; R74.01 Elevation of levels of liver transaminase levels; I25.10 Atherosclerotic heart disease of native coronary artery without angina pectoris; I48.0 Paroxysmal atrial fibrillation; E66.9 Obesity, unspecified; E11.65 Type 2 diabetes mellitus with hyperglycemia; Z68.31 Body mass index [BMI] 31.0-31.9, adult; Z82.5 Family history of asthma and other chronic lower respiratory diseases; Z83.3 Family history of diabetes mellitus; Z88.5 Allergy status to narcotic agent; Z87.891 Personal history of nicotine dependence; Z90.710 Acquired absence of both cervix and uterus; Z95.1 Presence of aortocoronary bypass graft
CPT/HCPCS: 36415; 71045; 71260; 74177; 80053; 81001; 82150; 82270; 82306; 82310; 82570; 82962; 83690; 83735; 83880; 83935; 83970; 84156; 84300; 84484; 85007; 85025; 85027; 85610; 85730; 87081; 87493; 93005; 93306; 93455; 93971; 96365; 96366; 96368; 96375; 97110; 97116; 97163; 97530; 99152; C9113; G0378; J0696; J1815; J2405; J3480; J3490